=== PATIENT | female | born 1970 | race Two or more races ===

== ENCOUNTER 2022-10-23 17:47 | Emergency (ER) | payer MEDICAID ==
[~2022-10-23] VITALS: Ht 160 cm; Wt 74.8 kg
[2022-10-23 18:48] VITALS: BP 136/78
[2022-10-23] MEDS ORDERED: PROM118S5 PO (19:47)
[2022-10-23] MEDS ORDERED: PRED20TA5 PO (19:47)
[2022-10-23 21:18] VITALS: BP 128/78
== END 2022-10-23 21:18 | disposition home or self-care (01) ==
LOC: MED 17:47
DX: J20.8 Acute bronchitis due to other specified organisms (principal)
CPT/HCPCS: 71045; 99283